=== PATIENT | female | born 1955 | race Caucasian/White ===

== ENCOUNTER 2019-02-13 11:25 | Emergency (ER) | payer BC ==
--- OUTSIDE RECORDS SUMMARY | 2019-02-13 11:31 | XMS REPORT | Continuity of Care Document ---
:1955 External Reference #:[id number] Author Name Aleyda Rossi Care Team Providers Name Role Phone Rosario Villarreal MD Primary Care Physician Unavailable Payers Date Identification Numbers Payment Provider Subscriber Effective: 2012 Policy Number: [id number] [employer] Markell Zheng PayID: [id number] [address] [address] [place] [address] Effective: 2010 Policy Number: [id number] [employer] [place] Markell Zheng Expires: 2012 PayID: [id number] [address] [address] [place] [address] Advance Directives Type Date Description Status Comment Other Directive 01/17/2018 Health Care Proxy Current and Verified Problems Active Problems Provider Date Pure hypercholesterolemia Demetra Lancaster M.D., FACP Onset: 12/26/2011 Low back pain Luisa Szymanski N.P. Onset: 12/26/2011 Acquired trigger finger Billy Kincaid M.D. Onset: 07/28/2014 Hand joint pain Billy Kincaid M.D. Onset: 07/28/2014 Chest pain Derrick Mehta M.D., Onset: 08/29/2017 FAC, EMILIE Thoracic aortic ectasia Derrick Mehta M.D., Onset: 08/29/2017 FACThuy, EMILIE Localized, primary osteoarthritis of the [place]anna Melton M.D. Onset: 01/19/2018 pelvic region and thigh Family History Date Family Member(s) Observation Comments General Cancer General Diabetes General Heart Disease General Hypertension General Rheumatoid Arthritis : (age Father due to Abdominal 76 Years) Aneurysm : (age Mother due to Cancer, 66 Years) Breast Mother Breast Cancer First Son 34 Second Son 32 Siblings 3 1 Brother - A Fib 1 Brother - Arrhythmia - Pacemaker 1 Brother - First Brother 61 First Brother Diabetes, Non Insulin Dependent Second Brother Obesity Second Brother 56 Third Brother 52 Third Brother Alive And Well Maternal Grandmother due to Breast () Cancer Social History Type Date Description Comments Sex Unknown Marital Status Lives With Occupation manage/maintain [employer] Tobacco Use Start: Unknown Never Smoked Cigarettes Smoking Status Reviewed: 02/11/19 Never Smoked Cigarettes ETOH Use Denies alcohol use Tobacco Use Start: Unknown Patient has never smoked Exercise Type/Frequency Exercises sporadically Allergies, Adverse Reactions, Alerts Active Allergies Reaction Severity Comments Date Cipro Anaphylaxis Severe 08/26/2010 Codeine Nausea and Vomiting Severe 08/26/2010 Medications Active Medications SIG Qnty Indications Ordering Provider Date Lisinopril 1 by mouth 30tabs I10 Luisa Varmarita, 10/01/2018 5mg Tablets every day N.P. Metoprolol Succinate 1 by mouth 30tabs Luisa Varn, 10/25/2017 ER every day N.P. 50mg Tablets ER 24HR Multi For Her 1 po qd Unknown Capsules Calcium + D3 1 daily Unknown (sporadic) History Medications Benzonatate one by mouth 30caps R05 Luisa Stephon, 05/11/2018 - 100mg Capsules three times N.P. 05/25/2018 daily as needed for cough Doxycycline Hyclate 2 tablets by 2tabs Luisa Stephon, 05/04/2018 - 100mg mouth N.P. 05/08/2018 Tablets Famotidine 1 by mouth 60tabs K21.9 Luisa Varn, 04/24/2018 - 20mg Tablets twice a day as N.P. 02/10/2019 needed for heartburn Meloxicam 1 by mouth 30tabs M25.552 Gabi Melton, 01/19/2018 - 15mg Tablets every day M.D. 04/24/2018 Metoprolol Succinate ER 1 by mouth 90tabs Luisa Varn, 08/29/2017 - 25mg every day N.P. 10/25/2017 Tablets ER 24HR Fluticasone Propionate 2 sprays each 16units J01.90 Luisa Stephon, 2016 - nostril daily N.P. 06/27/2017 50mcg/Act Suspension as needed Amoxicillin/Clavulanate one tablet by 20tabs J01.90 Luisa Stephon, 2016 - Potassium mouth twice N.P. 06/23/2017 875-125mg Tablets daily for 10 days Benzonatate one by mouth 30caps J01.90 Luisa Stephon, 06/13/2017 - 100mg Capsules three times N.P. 06/27/2017 daily as needed for cough Ibuprofen 1 tablet every 15tabs 719.46 Abdon Hahn, 11/19/2014 - 600mg Tablets 6 hours as [employer] 11/19/2014 needed for pain Ibuprofen 1 tablet every 30tabs 719.46 Abdon Hahn, 11/19/2014 - 600mg Tablets 6 hours up to [employer] 01/16/2018 tid as needed for pain Hydrochlorothiazide take one tablet 30tabs 401.1 Abdon Hahn, 08/21/2013 - 25mg by mouth every [employer] 03/21/2016 Tablets morning Cyclobenzaprine HCL take one at 30tabs 724.2 Demetra Lancaster, 02/27/2013 - 5mg Tablets bedtime as M.D., FACP 07/13/2014 needed Tramadol HCL one tablet 60tabs 724.2 Demetra Lancaster, 02/27/2013 - 50mg Tablets every 6 hours M.D., FACP 08/21/2013 as needed Hydrocodone/Acetaminophen 1-2 tabs by 20tabs 726.19 Demetra Lancaster, 2012 - mouth every 6 M.D., FACP 08/21/2013 5-325mg Tablets hours as needed Amoxicillin/Clavulanate 1 tablet twice 20tabs E906.5 Rosario 04/16/2012 - Potassium daily for 10 Cotton, M.D. 2012 875-125mg Tablets days Relpax 1 by mouth 6tabs Demetra Lancaster, 01/16/2012 - 40mg Tablets every day as M.D., FACP 10/16/2012 needed Simvastatin Take 1 Tablet 90tabs Demetra Lancaster, 09/07/2010 - 20mg Tablets AT Bedtime M.D., FACP 12/26/2011 Zithromax Z-Bernard two po 1Pack Demetra Lancaster, 08/26/2010 - 250mg Tablets initially then M.D., [facility] 09/05/2010 one po daily Flonase 2 intranasal 1units Demetar Lancaster, 08/26/2010 - 50mcg/Act Suspension puffs each M.D., [facility] 12/26/2011 nostril once daily Hydrochlorothiazide 1 po qd 90tabs Demetra Lancaster, 08/26/2010 - 25mg M.D., [facility] 12/26/2011 Tablets Zocor 1 tablet daily 90tabs Demetra Lancaster, 03/19/2010 - 20mg Tablets M.D., [facility] 12/26/2011 Melatonin 1 po qhs 90caps Unknown - 3mg Capsules 07/13/2014 Ibuprofen 3 tabs po prn Unknown - 200mg Capsules 07/13/2014 Aspirin Ec 1 by mouth Unknown - 81mg Tablets DR every day 03/21/2016 Melatonin every day as Unknown - 5mg Tablets Dispers needed 06/10/2016 Morus Fruit Tab 3 tabs 3 times Unknown - a day 09/27/2018 Albizzia 9 3 tabs 3 times Unknown - a day 09/27/2018 Nardova 1 tab before Unknown - bed 09/27/2018 Medications Administered in Office Medication SIG Qnty Indications Ordering Provider Date Depomedrol 40MG Gabi Melton M.D. 01/19/2018 Injection Depomedrol 20MG Billy Kincaid M.D. 07/14/2014 Injection Immunizations CPT Code Status Date Vaccine Lot # [id number] Given 04/24/2018 Tdap - Tetanus/Diptheria/Acellular Pertussis [id number] Given 03/24/2015 Zoster (Zostavax) [id number] 51397 Given 08/21/2013 Flu Vaccine Split Virus Preservative Free For [id number] Indiv 3Yr Older [id number] Given 2012 Fluzone Vaccine [id number] 47466 Given 2012 Hepatitis B Vaccine Adult Dosage [id number] 03880 Given 2012 Hepatitis A Vaccine Adult Dosage [id number] 68806 Given 05/21/2009 Influenza Virus 3Yrs & Over 78904 Given 02/15/2008 Tdap - Tetanus/Diptheria/Acellular Pertussis 86686 Given 02/15/2008 Tdap - Tetanus/Diptheria/Acellular Pertussis 45841 Given 06/18/2007 Influenza Virus 3Yrs & Over 68041 Given 06/18/2007 Influenza Virus 3Yrs & Over 74621 Given 04/05/2007 Hepatitis B Vaccine Adult Dosage 12203 Given 04/05/2007 Hepatitis B Vaccine Adult Dosage 41685 Given 02/27/2007 Hepatitis B Vaccine Adult Dosage 98673 Given 02/27/2007 Hepatitis B Vaccine Adult Dosage 34621 Given 02/27/2007 Hepatitis A Vaccine Adult Dosage Vital Signs Date Vital Result Comment 02/11/2019 1:17pm Height 64.5 inches 5'4.50" Weight 167.00 lb with shoes Heart Rate 68 /min BP Systolic Sitting 146 mmHg lue reg cuff BP Diastolic Sitting 80 mmHg lue reg cuff BP Systolic Standing 150 mmHg lue reg cuff BP Diastolic Standing 80 mmHg lue reg cuff BMI (Body Mass Index) 28.2 kg/m2 Ejection Fraction 60-65% echo 11/26/18 12/11/2018 9:26am Height 64.5 inches 5'4.50" Weight 167.00 lb Heart Rate 68 /min BP Systolic 146 mmHg BP Diastolic 86 mmHg O2 % BldC Oximetry 97 % BMI (Body Mass Index) 28.2 kg/m2 Last Menstrual Period [id number] 10/22/2018 10:12am Height 64.5 inches 5'4.50" Weight 165.00 lb Heart Rate 62 /min BP Systolic 142 mmHg BP Diastolic 85 mmHg Body Temperature 97.9 F O2 % BldC Oximetry 98 % BMI (Body Mass Index) 27.9 kg/m2 10/01/2018 10:26am Height 64.5 inches 5'4.50" Weight 170.75 lb Heart Rate 69 /min BP Systolic Sitting 157 mmHg reg adult cuff left arm BP Diastolic Sitting 89 mmHg reg adult cuff left arm Body Temperature 96.9 F O2 % BldC Oximetry 98 % at rest on room air BMI (Body Mass Index) 28.9 kg/m2 05/11/2018 11:44am Height 64.5 inches 5'4.50" Weight 164.00 lb Heart Rate 61 /min BP Systolic 128 mmHg BP Diastolic 80 mmHg Body Temperature 97.9 F O2 % BldC Oximetry 98 % BMI (Body Mass Index) 27.7 kg/m2 04/24/2018 8:33am Height 64.5 inches 5'4.50" Weight 164.00 lb Heart Rate 63 /min BP Systolic 142 mmHg BP Diastolic 80 mmHg Body Temperature 97.3 F O2 % BldC Oximetry 97 % BMI (Body Mass Index) 27.7 kg/m2 02/19/2018 9:15am Height 65 inches 5'5" Weight 145.25 lb BP Systolic 140 mmHg BP Diastolic 84 mmHg Body Temperature 98.0 F Pain Level 0 BMI (Body Mass Index) 24.2 kg/m2 01/19/2018 11:30am Height 63.25 inches 5'3.25" Weight 168.00 lb Heart Rate 64 /min BP Systolic 148 mmHg BP Diastolic 100 mmHg BMI (Body Mass Index) 29.5 kg/m2 01/17/2018 3:39pm Height 63.25 inches 5'3.25" Weight 168.00 lb Heart Rate 69 /min BP Systolic Sitting 132 mmHg BP Diastolic Sitting 85 mmHg Body Temperature 97.9 F O2 % BldC Oximetry 98 % BMI (Body Mass Index) 29.5 kg/m2 10/25/2017 10:09am Weight 175.50 lb Heart Rate 61 /min BP Systolic 143 mmHg BP Diastolic 82 mmHg Body Temperature 97.1 F O2 % BldC Oximetry 98 % 08/29/2017 1:02pm Height 63.25 inches 5'3.25" Weight 171.00 lb No shoes Heart Rate 70 /min BP Systolic 150 mmHg Rue lrg cuff BP Diastolic 78 mmHg Rue lrg cuff BP Systolic Sitting 148 mmHg Lue lrg cuff BP Diastolic Sitting 80 mmHg Lue lrg cuff BP Systolic Standing 146 mmHg Lue lrg cuff BP Diastolic Standing 82 mmHg Lue lrg cuff Respiratory Rate 16 /min BMI (Body Mass Index) 30.0 kg/m2 Ejection Fraction 50-55% 08/03/2017-echo 07/26/2017 9:11am Weight 168.00 lb Heart Rate 75 /min BP Systolic 154 mmHg BP Diastolic 78 mmHg Body Temperature 97.4 F O2 % BldC Oximetry 98 % 06/13/2017 9:58am Heart Rate 79 /min BP Systolic 132 mmHg BP Diastolic 90 mmHg Body Temperature 98.0 F O2 % BldC Oximetry 97 % 04/12/2017 10:05am Weight 172.12 lb Heart Rate 77 /min BP Systolic 140 mmHg BP Diastolic 80 mmHg Body Temperature 98.0 F O2 % BldC Oximetry 98 % 03/29/2017 10:34am Weight 173.00 lb Heart Rate 60 /min BP Systolic 152 mmHg right arm BP Diastolic 98 mmHg right arm Body Temperature 97.7 F O2 % BldC Oximetry 98 % 07/26/2016 11:13am Height 64.5 inches 5'4.50" Weight 171.00 lb Heart Rate 55 /min BP Systolic 140 mmHg BP Diastolic 88 mmHg Body Temperature 97.9 F O2 % BldC Oximetry 98 % BMI (Body Mass Index) 28.9 kg/m2 06/24/2016 1:29pm Height 64.5 inches 5'4.50" Weight 169.00 lb Heart Rate 73 /min BP Systolic 131 mmHg BP Diastolic 83 mmHg Body Temperature 97.9 F O2 % BldC Oximetry 98 % BMI (Body Mass Index) 28.6 kg/m2 06/10/2016 12:53pm Height 64.5 inches 5'4.50" Weight 167.00 lb Heart Rate 74 /min BP Systolic 121 mmHg BP Diastolic 77 mmHg Body Temperature 98.3 F O2 % BldC Oximetry 98 % BMI (Body Mass Index) 28.2 kg/m2 03/21/2016 3:05pm Weight 170.00 lb Heart Rate 66 /min BP Systolic Sitting 124 mmHg BP Diastolic Sitting 80 mmHg Respiratory Rate 15 /min Body Temperature 98.3 F O2 % BldC Oximetry 98 % 03/24/2015 10:02am Height 65 inches 5'5" Weight 164.50 lb Heart Rate 76 /min BP Systolic Sitting 118 mmHg BP Diastolic Sitting 78 mmHg Body Temperature 97.4 F O2 % BldC Oximetry 98 % BMI (Body Mass Index) 27.4 kg/m2 11/19/2014 10:50am Height 65 inches 5'5" Weight 168.25 lb Heart Rate 69 /min BP Systolic Sitting 128 mmHg BP Diastolic Sitting 76 mmHg Body Temperature 97.6 F O2 % BldC Oximetry 98 % BMI (Body Mass Index) 28.0 kg/m2 09/01/2014 8:43am Height 65 inches 5'5" Heart Rate 69 /min BP Systolic 145 mmHg BP Diastolic 83 mmHg 07/28/2014 3:34pm Height 65 inches 5'5" Heart Rate 59 /min BP Systolic 126 mmHg BP Diastolic 88 mmHg 07/14/2014 11:08am Height 65 inches 5'5" Weight 160.00 lb Heart Rate 61 /min BP Systolic 120 mmHg BP Diastolic 81 mmHg BMI (Body Mass Index) 26.6 kg/m2 06/10/2014 11:25am Weight 165.00 lb Heart Rate 72 /min BP Systolic Sitting 118 mmHg BP Diastolic Sitting 82 mmHg 08/21/2013 1:17pm Weight 164.00 lb Heart Rate 72 /min BP Systolic Sitting 138 mmHg BP Diastolic Sitting 78 mmHg 02/27/2013 2:51pm Heart Rate 74 /min BP Systolic Sitting 132 mmHg BP Diastolic Sitting 84 mmHg 01/25/2013 8:59am Weight 169.00 lb Heart Rate 68 /min BP Systolic Sitting 126 mmHg BP Diastolic Sitting 80 mmHg Body Temperature 98.5 F Tympanically 10/16/2012 11:00am Height 65 inches 5'5" Weight 167.00 lb Heart Rate 76 /min BP Systolic Sitting 138 mmHg BP Diastolic Sitting 84 mmHg BMI (Body Mass Index) 27.8 kg/m2 2012 1:35pm Height 65 inches 5'5" Weight 165.00 lb Heart Rate 76 /min BP Systolic Sitting 130 mmHg BP Diastolic Sitting 82 mmHg BMI (Body Mass Index) 27.5 kg/m2 04/16/2012 9:31am Height 65 inches 5'5" Weight 163.50 lb Heart Rate 84 /min BP Systolic Sitting 130 mmHg BP Diastolic Sitting 84 mmHg Body Temperature 98.4 F BMI (Body Mass Index) 27.2 kg/m2 01/16/2012 10:19am Height 65 inches 5'5" Weight 166.50 lb Heart Rate 64 /min BP Systolic Sitting 128 mmHg BP Diastolic Sitting 80 mmHg BMI (Body Mass Index) 27.7 kg/m2 12/26/2011 12:06pm Height 65 inches 5'5" Weight 166.00 lb Heart Rate 64 /min BP Systolic Sitting 138 mmHg BP Diastolic Sitting 80 mmHg Body Temperature 98.0 F BMI (Body Mass Index) 27.6 kg/m2 08/26/2010 10:52am Weight 166.00 lb Heart Rate 70 /min BP Systolic 122 mmHg BP Diastolic 90 mmHg Body Temperature 98.4 F Results Test Date Facility Test Result H/L Range Note Laboratory test 12/11/2018 [facility] Cytology SEE RESULT [address] [place] [address] [phone] Lipid Profile 11/27/2018 [facility] Triglycerides 166 mg/dL 2 (Trig/Chol/HDL) [address] [place] [address] [phone] Cholesterol 198 mg/dL 3 HDL Cholesterol 60.6 mg/dL 4 LDL Cholesterol 104 mg/dL 5 Comp Metabolic Panel 11/27/2018 [facility] Sodium 142 mmol/L N 135-[address] [place] [address] [phone] Potassium 4.3 mmol/L N 3.5-5.0 Chloride 105 mmol/L N 101-111 Co2 Carbon Dioxide 30 mmol/L N 22-32 Anion Gap 7 mmol/L N 2-11 Glucose 82 mg/dL N 70-100 Blood Urea Nitrogen 17 mg/dL N 6-24 Creatinine 0.83 mg/dL N 0.51-0.95 BUN/Creatinine Ratio 20.5 High 8-20 Calcium 10.1 mg/dL N 8.6-10.3 Total Protein 6.7 g/dL N 6.4-8.9 Albumin 4.2 g/dL N 3.2-5.2 Globulin 2.5 g/dL N 2-4 Albumin/Globulin Ratio 1.7 N 1-3 Total Bilirubin 0.80 mg/dL N 0.2-1.0 Alkaline Phosphatase 99 U/L N 34-104 Alt 13 U/L N 7-52 Ast 22 U/L N 13-39 Egfr Non- 69.2 >60 Egfr 83.7 >60 6 Istat BUN/Crea/Egfr/V 07/26/2017 [facility] Poc Bun 12 mg/dL N 9-[address] [place] [address] [phone] Poc Crea Mainct 0.9 mg/dL N 0.6-0.9 GFR Non- MCT 63.2 >60 GFR Mainct 81.3 >60 7 Basic Metabolic Panel 07/26/2017 [facility] Sodium 138 mmol/L N 133-[address] [place] [address] [phone] Potassium 3.7 mmol/L N 3.5-5.0 Chloride 104 mmol/L N 101-111 Co2 Carbon Dioxide 30 mmol/L N 22-32 Anion Gap 4 mmol/L N 2-11 Glucose 89 mg/dL N 70-100 Blood Urea Nitrogen 13 mg/dL N 6-24 Creatinine 0.85 mg/dL N 0.51-0.95 BUN/Creatinine Ratio 15.3 N 8-20 Calcium 9.9 mg/dL N 8.6-10.3 Egfr Non- 67.5 >60 Egfr 86.9 >60 8 CBC Auto Diff 07/26/2017 [facility] White Blood 6.3 10^3/uL N 3.5-10.[address] [place] [address] [phone] Red Blood Count 4.36 10^6/uL N 4.0-5.4 Hemoglobin 13.6 g/dL N 12.0-16.0 Hematocrit 41 % N 35-47 Mean Corpuscular Volume 94 fL N 80-97 Mean Corpuscular Hemoglobin 31 pg N 27-31 Mean Corpuscular HGB Conc 33 g/dL N 31-36 Red Cell Distribution Width 13 % N 10.5-15 Platelet Count 229 10^3/uL N 150-450 Mean Platelet Volume 8 um3 N 7.4-10.4 Abs Neutrophils 3.4 10^3/uL N 1.5-7.7 Abs Lymphocytes 2.3 10^3/uL N 1.0-4.8 Abs Monocytes 0.4 10^3/uL N 0-0.8 Abs Eosinophils 0.1 10^3/uL N 0-0.6 Abs Basophils 0.1 10^3/uL N 0-0.2 Abs Nucleated RBC 0 10^3/uL Granulocyte % 54.1 % N 38-83 Lymphocyte % 37.1 % N 25-47 Monocyte % 6.5 % N 1-9 Eosinophil % 1.4 % N 0-6 Basophil % 0.9 % N 0-2 Nucleated Red Blood Cells % 0 CBC Auto Diff 08/16/2016 [facility] White Blood 7.8 10^3/uL N 3.5-10.[address] [place] [address] [phone] Red Blood Count 4.34 10^6/uL N 4.0-5.4 Hemoglobin 13.7 g/dL N 12.0-16.0 Hematocrit 40 % N 35-47 Mean Corpuscular Volume 93 fL N 80-97 Mean Corpuscular Hemoglobin 32 pg High 27-31 Mean Corpuscular HGB Conc 34 g/dL N 31-36 Red Cell Distribution Width 13 % N 10.5-15 Platelet Count 223 10^3/uL N 150-450 Mean Platelet Volume 9 um3 N 7.4-10.4 Abs Neutrophils 4.5 10^3/uL N 1.5-7.7 Abs Lymphocytes 2.6 10^3/uL N 1.0-4.8 Abs Monocytes 0.6 10^3/uL N 0-0.8 Abs Eosinophils 0.1 10^3/uL N 0-0.6 Abs Basophils 0 10^3/uL N 0-0.2 Abs Nucleated RBC 0 10^3/uL N Granulocyte % 57.4 % N 38-83 Lymphocyte % 32.6 % N 25-47 Monocyte % 8.2 % N 1-9 Eosinophil % 1.3 % N 0-6 Basophil % 0.5 % N 0-2 Nucleated Red Blood Cells % 0.1 N Comp Metabolic Panel 08/16/2016 [facility] Sodium 139 mmol/L N 133-[address] [place] [address] [phone] Potassium 4.1 mmol/L N 3.5-5.0 Chloride 103 mmol/L N 101-111 Co2 Carbon Dioxide 29 mmol/L N 22-32 Anion Gap 7 mmol/L N 2-11 Glucose 90 mg/dL N 70-100 Blood Urea Nitrogen 16 mg/dL N 6-24 Creatinine 0.82 mg/dL N 0.51-0.95 BUN/Creatinine Ratio 19.5 N 8-20 Calcium 9.7 mg/dL N 8.6-10.3 Total Protein 6.7 g/dL N 6.4-8.9 Albumin 4.0 g/dL N 3.2-5.2 Globulin 2.7 g/dL N 2-4 Albumin/Globulin Ratio 1.5 N 1-3 Total Bilirubin 0.60 mg/dL N 0.2-1.0 Alkaline Phosphatase 107 U/L High 34-104 Alt 12 U/L N 7-52 Ast 20 U/L N 13-39 Egfr Non- 70.6 N >60 Egfr 90.8 N >60 9 Laboratory test 08/16/2016 [facility] TSH (Thyroid 1.96 mcIU/mL N 0.34-5.[address] Stim [place]orm) [place] [address] [phone] Ua Routine 06/24/2016 [employer] Ua Specific 1.030 [place] Ua PH 5 Ua Color yellow Ua Appera cloudy Ua WBC neg Ua Protein trace Ua Glucose neg Ua Ketones neg Ua Bilirubin neg Ua Urobilinogen normal Ua Nitrite neg Ua Occult Blood neg CBC Auto Diff 06/23/2016 [facility] White Blood 7.3 10^3/uL N 3.5-10.[address] [place] [address] [phone] Red Blood Count 4.33 10^6/uL N 4.0-5.4 Hemoglobin 13.7 g/dL N 12.0-16.0 Hematocrit 41 % N 35-47 Mean Corpuscular Volume 94 fL N 80-97 Mean Corpuscular Hemoglobin 32 pg High 27-31 Mean Corpuscular HGB Conc 33 g/dL N 31-36 Red Cell Distribution Width 13 % N 10.5-15 Platelet Count 222 10^3/uL N 150-450 Mean Platelet Volume 9 um3 N 7.4-10.4 Abs Neutrophils 4.0 10^3/uL N 1.5-7.7 Abs Lymphocytes 2.2 10^3/uL N 1.0-4.8 Abs Monocytes 0.7 10^3/uL N 0-0.8 Abs Eosinophils 0.3 10^3/uL N 0-0.6 Abs Basophils 0.1 10^3/uL N 0-0.2 Abs Nucleated RBC 0 10^3/uL N Granulocyte % 55.5 % N 38-83 Lymphocyte % 29.7 % N 25-47 Monocyte % 9.7 % High 1-9 Eosinophil % 4.1 % N 0-6 Basophil % 1.0 % N 0-2 Nucleated Red Blood Cells % 0 N Comp Metabolic Panel 06/23/2016 [facility] Sodium 138 mmol/L N 133-[address] [place] [address] [phone] Potassium 4.4 mmol/L N 3.5-5.0 Chloride 106 mmol/L N 101-111 Co2 Carbon Dioxide 26 mmol/L N 22-32 Anion Gap 6 mmol/L N 2-11 Glucose 85 mg/dL N 70-100 Blood Urea Nitrogen 21 mg/dL N 6-24 Creatinine 1.04 mg/dL High 0.51-0.95 BUN/Creatinine Ratio 20.2 High 8-20 Calcium 9.5 mg/dL N 8.6-10.3 Total Protein 6.5 g/dL N 6.4-8.9 Albumin 3.9 g/dL N 3.2-5.2 Globulin 2.6 g/dL N 2-4 Albumin/Globulin Ratio 1.5 N 1-3 Total Bilirubin 0.40 mg/dL N 0.2-1.0 Alkaline Phosphatase 108 U/L High 34-104 Alt 10 U/L N 7-52 Ast 17 U/L N 13-39 Egfr Non- 53.7 N >60 Egfr 69.1 N >60 10 Laboratory test 03/18/2016 [facility] B-Type 27 pg/mL N [address] [place] [address] Peptide BNP [phone] Comp Metabolic 03/18/2016 [facility] Sodium 139 mmol/L N 133- [address] [place] [address] [phone] Potassium 3.8 mmol/L N 3.5-5.0 Chloride 105 mmol/L N 101-111 Co2 Carbon Dioxide 28 mmol/L N 22-32 Anion Gap 6 mmol/L N 2-11 Glucose 94 mg/dL N 70-100 Blood Urea Nitrogen 17 mg/dL N 6-24 Creatinine 0.87 mg/dL N 0.51-0.95 BUN/Creatinine Ratio 19.5 N 8-20 Calcium 9.3 mg/dL N 8.6-10.3 Total Protein 6.9 g/dL N 6.4-8.9 Albumin 3.9 g/dL N 3.2-5.2 Globulin 3.0 g/dL N 2-4 Albumin/Globulin Ratio 1.3 N 1-3 Total Bilirubin 0.50 mg/dL N 0.2-1.0 Alkaline Phosphatase 100 U/L N 34-104 Alt 13 U/L N 7-52 Ast 20 U/L N 13-39 Egfr Non- 66.2 N >60 Egfr 85.1 N >60 12 Laboratory test 03/18/2016 [facility] Troponin-I 0.01 ng/mL N <0.03 [address] (TnI) [place] [address] [phone] CBC Auto Diff 03/18/2016 [facility] White Blood 7.1 N 3.5- 10.[address] Count 10^3/[place] [address] [phone] Red Blood Count 4.37 10^6/uL N 4.0-5.4 Hemoglobin 13.6 g/dL N 12.0-16.0 Hematocrit 41 % N 35-47 Mean Corpuscular Volume 94 fL N 80-97 Mean Corpuscular Hemoglobin 31 pg N 27-31 Mean Corpuscular HGB Conc 33 g/dL N 31-36 Red Cell Distribution Width 13 % N 10.5-15 Platelet Count 217 10^3/uL N 150-450 Mean Platelet Volume 9 um3 N 7.4-10.4 Abs Neutrophils 3.7 10^3/uL N 1.5-7.7 Abs Lymphocytes 2.7 10^3/uL N 1.0-4.8 Abs Monocytes 0.6 10^3/uL N 0-0.8 Abs Eosinophils 0.1 10^3/uL N 0-0.6 Abs Basophils 0.1 10^3/uL N 0-0.2 Abs Nucleated RBC 0.01 10^3/uL N Granulocyte % 51.9 % N 38-83 Lymphocyte % 37.7 % N 25-47 Monocyte % 7.9 % N 1-9 Eosinophil % 1.4 % N 0-6 Basophil % 1.1 % N 0-2 Nucleated Red Blood Cells % 0.1 N Comp Metabolic Panel 03/24/2015 [facility] Sodium 139 mmol/L N 133-[address] [place] [address] [phone] Potassium 3.4 mmol/L Low 3.5-5.0 Chloride 100 mmol/L Low 101-111 Co2 Carbon Dioxide 33 mmol/L High 22-32 Anion Gap 6 mmol/L N 2-11 Glucose 90 mg/dL N 70-100 Blood Urea Nitrogen 22 mg/dL N 6-24 Creatinine 0.89 mg/dL N 0.51-0.95 BUN/Creatinine Ratio 24.7 High 8-20 Calcium 9.4 mg/dL N 8.6-10.3 Total Protein 6.6 g/dL N 6.4-8.9 Albumin 4.1 g/dL N 3.2-5.2 Globulin 2.5 g/dL N 2-4 Albumin/Globulin Ratio 1.6 N 1-3 Total Bilirubin 0.60 mg/dL N 0.2-1.0 Alkaline Phosphatase 79 U/L N 34-104 Alt 16 U/L N 7-52 Ast 27 U/L N 13-39 Egfr Non- 64.7 N >60 Egfr 83.2 N >60 15 Lipid Profile 03/24/2015 [facility] Triglycerides 117 mg/dL N 16 (Trig/Chol/HDL) [address] [place] [address] [phone] Cholesterol 203 mg/dL N 17 HDL Cholesterol 56.3 mg/dL N 18 LDL Cholesterol 123 mg/dL N 19 Laboratory test 11/19/2014 [facility] D Dimer < 200 N Less [address] Quantitative ng/mL Than [address] [place] [address] [phone] CBC Auto Diff 08/14/2014 [facility] White Blood Count 7.5 N 4.8-10.[address] 10^3/[place] [address] [phone] Red Blood Count 4.24 10^6/uL N 4.0-5.4 Hemoglobin 13.7 g/dL N 12.0-16.0 Hematocrit 40 % N 35-47 Mean Corpuscular Volume 94 fL N 80-97 Mean Corpuscular Hemoglobin 32 pg High 27-31 Mean Corpuscular HGB Conc 34 g/dL N 31-36 Red Cell Distribution Width 13 % N 10.5-15 Platelet Count 215 10^3/uL N 150-450 Mean Platelet Volume 8 um3 N 7.4-10.4 Abs Neutrophils 3.7 10^3/uL N 1.5-7.7 Abs Lymphocytes 3.1 10^3/uL N 1.0-4.8 Abs Monocytes 0.5 10^3/uL N 0-0.8 Abs Eosinophils 0.1 10^3/uL N 0-0.6 Abs Basophils 0 10^3/uL N 0-0.2 Abs Nucleated RBC 0.01 10^3/uL N Granulocyte % 49.6 % N 38-83 Lymphocyte % 41.8 % N 25-47 Monocyte % 6.9 % N 1-9 Eosinophil % 1.2 % N 0-6 Basophil % 0.5 % N 0-2 Nucleated Red Blood Cells % 0.1 N Basic Metabolic Panel 08/14/2014 [facility] Sodium 140 mmol/L N 133-[address] [place] [address] [phone] Potassium 3.6 mmol/L N 3.5-5.0 Chloride 103 mmol/L N 101-111 Co2 Carbon Dioxide 32 mmol/L N 22-32 Anion Gap 5 mmol/L N 2-11 Glucose 95 mg/dL N 70-100 Blood Urea Nitrogen 15 mg/dL N 6-24 Creatinine 0.91 mg/dL N 0.51-0.95 BUN/Creatinine Ratio 16.5 N 8-20 Calcium 9.6 mg/dL N 8.6-10.3 Egfr Non- 63.1 N >60 Egfr 81.1 N >60 22 Surgical 07/02/2014 [facility] S RUN DATE: [address] 07/03/ <[place] [address] NOTE> [phone] Lipid Profile 11/05/2013 [facility] Triglycerides 135 mg/dL 24 (Trig/Chol/HDL) [address] [place] [address] [phone] Cholesterol 189 mg/dL 25 HDL Cholesterol 58.3 mg/dL 26 LDL Cholesterol 104 mg/dL 27 Comp Metabolic Panel 11/05/2013 [facility] Sodium 139 mmol/L 133-[address] [place] [address] [phone] Potassium 3.6 mmol/L Low 3.7-5.6 Chloride 102 mmol/L 101-111 Co2 Carbon Dioxide 31 mmol/L 22-32 Anion Gap 6 mmol/L 2-11 Glucose 89 mg/dL 70-100 Blood Urea Nitrogen 23 mg/dL 6-24 Creatinine 0.77 mg/dL 0.51-0.95 BUN/Creatinine Ratio 29.9 High 8-20 Calcium 9.5 mg/dL 8.6-10.3 Total Protein 7.0 g/dL 6.4-8.9 Albumin 4.2 g/dL 3.2-5.2 Globulin 2.8 g/dL 2-4 Albumin/Globulin Ratio 1.5 1-3 Total Bilirubin 0.80 mg/dL 0.2-1.0 Alkaline Phosphatase 78 U/L 34-104 Alt 15 U/L 7-52 Ast 22 U/L 13-39 Egfr Non- 76.7 >60 Egfr 98.7 >60 28 Laboratory test 01/25/2013 [facility] TSH (Thyroid 1.98 0.34- 5.[address] Stimulating miu/[place] [address] Horm) [phone] Comp Metabolic 05/17/2012 [facility] Sodium 141 mmol/L 135- [address] [place] [address] [phone] Potassium 3.8 mmol/L 3.5-5.0 Chloride 107 mmol/L 101-111 Co2 (Carbon Dioxide) 31.0 mmol/L 22-32 Anion Gap 3.0 mmol/L 2-11 29 Glucose 87 mg/dL 70-100 BUN 17 mg/dL 6-24 Creatinine 0.9 mg/dL 0.50-1.40 One Over Creatinine 1.11 BUN/Creatinine Ratio 18.9 8-20 Calcium 9.6 mg/dL 8.1-9.9 Total Protein 6.3 GM/DL 6.2-8.1 Albumin 3.7 GM/DL 3.6-5.4 Globulin 2.6 GM/DL 2-4 Albumin/Globulin Ratio 1.4 1-3 Bilirubin Total 1.1 mg/dL 0.4-1.5 30 Alkaline Phosphatase 73 U/L 30-110 Alt (SGPT) 17 U/L 14-54 Ast (Sgot) 24 U/L 12-42 eGFR Non- 64.5 > 60 eGFR 83.0 > 60 31 Laboratory test 05/17/2012 [facility] TSH 1.92 MIU/ML 0.34- 5.[address] [place] [address] [phone] Lipid Profile 05/17/2012 [facility] Triglyceride 115 mg/dL 40 -200 (Trig/Chol/HDL) [address] [place] [address] [phone] Cholesterol 206 mg/dL High Less Than 200 32 High Density Lipoprotein 50 mg/dL 40-60 33 Cholesterol/HDL Ratio 4.12 AVERAGE 1-4.44 Low Density Lipoprotein 133 mg/dL High Less Than 100 34 CBC Auto Diff 01/13/2012 [facility] White Blood 7.2 CUMM 4.8- 10.[address] [place] [address] [phone] Red Cell Count 4.07 CUMM Low 4.2-5.4 Hemoglobin 13.5 g/dL 12.0-16.0 Hematocrit 38 % 35-47 Mean Corpuscular Volume 94 um3 79-97 Mean Corpuscular Hemoglob 33 pg High 27-31 Mean Corpuscular HGB Cone 36 g/dL 32-36 Redcell Distribution WDTH 13 % 10.5-15 Platelet Count 228 CUMM 150-450 Mean Platelet Volume 8.7 um3 7.4-10.4 Gran % 57.2 % 38-83 Lymph % 34.0 % 25-47 Mononuclear % 6.5 % 1-9 Eosinophil % 1.7 % 0-6 Basophil % 0.6 % 0-2 Abs Lymphs 2.4 1.0-4.8 Abs Mononuclear 0.5 0-0.8 Absolute Neutrophil Count 4.1 1.5-7.7 Abs Eosinophils 0.1 0-0.6 Abs Basophils 0 0-0.2 Laboratory test 01/13/2012 [facility] C Reactive < 0.5 mg/dL Less Than finding [address] Protein 0.5 [place] [address] [phone] LDH 165 U/L 95-185 1 SEE RESULT BELOW Name: ROXIE ZHENG : [address]: Randal Pappas MD Acct: [id number] Unit: [id number] AGE: 63 Location: [facility] Re12/11/18 SEX: F Status: REG REF SPEC: [id number] RAMÓN: 12/11/[address] [facility] [address]: Randal Pappas MD REQ: [id number] RECD: 12/11/18 STATUS: SOUT _ ORDERED: TP IMAGE ANALYS, HPV/Thin Prep COMMENTS: [id number] Negative for Intraepithelial lesion or Malignancy Date Time Test Result Flag (u) Normal Range 12/11/18 0948 @ HPV RNA Negative Negative @ @ The high-risk HPV types detected by the assay include: 16, @ 18, 31, 33, 35, 39, 45, 51, 52, 56, 58, 59, 66, and 68. A. Ectocervical/Endocervical Specimen Adequacy: Satisfactory of evaluation Transformation zone component cannot be definitely identified due to presence of atrophy or other hormonal changes Patient Information: HPV: High risk HPV RNA testing regardless of pap results. Actual Specimen Date: 12/11/18 Last Menstrual Date: 09/04/03 ?: N Post Menopausal?: N Hysterectomy?: N Signed by and Reported on: KEISHA Sanders(ASCP) 1551 This Pap test was evaluated with the assistance of the [employer]persol TechnologiesPrep Test Imaging System. Due to cytologic findings at the cardiovascular technologist microscope, comprehensive manual rescreening by a Store Consultant may be required. The Pap Smear is a screening test designed to aid in the detection of premalignant and malignant conditions of the uterine cervix. It is not a diagnostic procedure and should not be used as the sole means of detecting cervical cancer. Both false- positive and false- negative reports do occur. Depending on your risk status, a Pap smear should be obtained and evaluated every 1-3 years. END OF REPORT DEPARTMENT OF PATHOLOGY, [address] [place] [address] Delfino Coy M.D. Director [facility] # [id number] 2 Desirable: <150 Borderline High: 150-199 High: 200-499 Very High: >500 3 Desirable: <200 Borderline High: 200-239 High: >239 4 Low: <40 Desirable: 40-60 High: >60 5 Desirable: <100 Near Optimal: 100-129 Borderline High: 130-159 High: 160-189 Very High: >189 6 Because ethnic data is not always readily available, this report includes an eGFR for both -Americans and non- Americans. The National Kidney Disease Education Program (NKDEP) does not endorse the use of the MDRD equation for patients that are not between the ages of 18 and 70, are , have extremes of body size, muscle mass, or nutritional status, or are non- or non-. According to the National Kidney Foundation, irrespective of diagnosis, the stage of the disease is based on the level of kidney function: Stage Description GFR(mL/min/1.73 m(2)) 1 Kidney damage with normal or decreased GFR 90 2 Kidney damage with mild decrease in GFR 60-89 3 Moderate decrease in GFR 30-59 4 Severe decrease in GFR 15-29 5 Kidney failure <15 (or dialysis) 7 Because ethnic data is not always readily available, this report includes an eGFR for both -Americans and non- Americans. The National Kidney Disease Education Program (NKDEP) does not endorse the use of the MDRD equation for patients that are not between the ages of 18 and 70, are , have extremes of body size, muscle mass, or nutritional status, or are non- or non-. According to the National Kidney Foundation, irrespective of diagnosis, the stage of the disease is based on the level of kidney function: Stage Description GFR(mL/min/1.73 m(2)) 1 Kidney damage with normal or decreased GFR 90 2 Kidney damage with mild decrease in GFR 60-89 3 Moderate decrease in GFR 30-59 4 Severe decrease in GFR 15-29 5 Kidney failure <15 (or dialysis) 8 Because ethnic data is not always readily available, this report includes an eGFR for both -Americans and non- Americans. The National Kidney Disease Education Program (NKDEP) does not endorse the use of the MDRD equation for patients that are not between the ages of 18 and 70, are , have extremes of body size, muscle mass, or nutritional status, or are non- or non-. According to the National Kidney Foundation, irrespective of diagnosis, the stage of the disease is based on the level of kidney function: Stage Description GFR(mL/min/1.73 m(2)) 1 Kidney damage with normal or decreased GFR 90 2 Kidney damage with mild decrease in GFR 60-89 3 Moderate decrease in GFR 30-59 4 Severe decrease in GFR 15-29 5 Kidney failure <15 (or dialysis) 9 Because ethnic data is not always readily available, this report includes an eGFR for both -Americans and non- Americans. The National Kidney Disease Education Program (NKDEP) does not endorse the use of the MDRD equation for patients that are not between the ages of 18 and 70, are , have extremes of body size, muscle mass, or nutritional status, or are non- or non-. According to the National Kidney Foundation, irrespective of diagnosis, the stage of the disease is based on the level of kidney function: Stage Description GFR(mL/min/1.73 m(2)) 1 Kidney damage with normal or decreased GFR 90 2 Kidney damage with mild decrease in GFR 60-89 3 Moderate decrease in GFR 30-59 4 Severe decrease in GFR 15-29 5 Kidney failure <15 (or dialysis) 10 Because ethnic data is not always readily available, this report includes an eGFR for both -Americans and non- Americans. The National Kidney Disease Education Program (NKDEP) does not endorse the use of the MDRD equation for patients that are not between the ages of 18 and 70, are , have extremes of body size, muscle mass, or nutritional status, or are non- or non-. According to the National Kidney Foundation, irrespective of diagnosis, the stage of the disease is based on the level of kidney function: Stage Description GFR(mL/min/1.73 m(2)) 1 Kidney damage with normal or decreased GFR 90 2 Kidney damage with mild decrease in GFR 60-89 3 Moderate decrease in GFR 30-59 4 Severe decrease in GFR 15-29 5 Kidney failure <15 (or dialysis) 11 >100 to <200 pg/mL: likely compensated congestive heart failure (CHF) 200 to 400 pg/mL: likely moderate CHF >400 pg/mL: likely moderate to severe CHF 12 Because ethnic data is not always readily available, this report includes an eGFR for both -Americans and non- Americans. The National Kidney Disease Education Program (NKDEP) does not endorse the use of the MDRD equation for patients that are not between the ages of 18 and 70, are , have extremes of body size, muscle mass, or nutritional status, or are non- or non-. According to the National Kidney Foundation, irrespective of diagnosis, the stage of the disease is based on the level of kidney function: Stage Description GFR(mL/min/1.73 m(2)) 1 Kidney damage with normal or decreased GFR 90 2 Kidney damage with mild decrease in GFR 60-89 3 Moderate decrease in GFR 30-59 4 Severe decrease in GFR 15-29 5 Kidney failure <15 (or dialysis) 13 Reference Range and Interpretation: TnI (ng/mL) Interpretation Less Than 0.03 ng/mL Not supportive of diagnosis of [place] 0.03 - 0.50 ng/mL Indeterminate: suggest serial studies if clinically indicated. Greater than 0.5 ng/mL Consistent with diagnosis of KS 14 PT IS FASTING 15 Because ethnic data is not always readily available, this report includes an eGFR for both -Americans and non- Americans. The National Kidney Disease Education Program (NKDEP) does not endorse the use of the MDRD equation for patients that are not between the ages of 18 and 70, are , have extremes of body size, muscle mass, or nutritional status, or are non- or non-. According to the National Kidney Foundation, irrespective of diagnosis, the stage of the disease is based on the level of kidney function: Stage Description GFR(mL/min/1.73 m(2)) 1 Kidney damage with normal or decreased GFR 90 2 Kidney damage with mild decrease in GFR 60-89 3 Moderate decrease in GFR 30-59 4 Severe decrease in GFR 15-29 5 Kidney failure <15 (or dialysis) 16 Desirable <150 Borderline high 150-199 High 200-499 Very High >500 17 Desirable <200 Borderline high 200-239 High >239 18 Low <40 Desirable: 40-60 High: >60 19 Desirable: <100 mg/dL Near Optimal: 100-129 mg/dL Borderline High: 130-159 mg/dL High: 160-189 mg/dL Very High: >189 mg/dL 20 Please note: The following may produce a false positive D Dimer test: - Rheumatoid factor greater than 60 IU/ml - Plasma hemoglobin greater than 0.05 gm/dl - Bilirubin greater than 50 mg/dl - Lipids greater than 1000 mg/dl - FDP greater than 20 ug/ml 21 SDS 08/20/14 22 Because ethnic data is not always readily available, this report includes an eGFR for both -Americans and non- Americans. The National Kidney Disease Education Program (NKDEP) does not endorse the use of the MDRD equation for patients that are not between the ages of 18 and 70, are , have extremes of body size, muscle mass, or nutritional status, or are non- or non-. According to the National Kidney Foundation, irrespective of diagnosis, the stage of the disease is based on the level of kidney function: Stage Description GFR(mL/min/1.73 m(2)) 1 Kidney damage with normal or decreased GFR 90 2 Kidney damage with mild decrease in GFR 60-89 3 Moderate decrease in GFR 30-59 4 Severe decrease in GFR 15-29 5 Kidney failure <15 (or dialysis) 23 RUN DATE: 07/03/14 [facility] LAB LIVE PAGE 1 RUN TIME: [address] [place] [id number] Specimen Inquiry Name: ROXIE ZHENG : [address]: Salbador Thomas MD Acct: [id number] Unit: [id number] AGE: 59 Location: ENDO Re07/02/14 SEX: F Status: REG REF SPEC: [id number] RAMÓN: 07/02/14- SUBM DR: Salbador Thomas MD REQ: [id number] RECD: 07/02/141235 STATUS: MICHAEL ANN DR: Demetra Lancaster MD _ ORDERED: LEVEL IV/3 FINAL DIAGNOSIS 1. Colon, right, biopsy: A. Tubular adenoma. B. No high grade dysplasia or malignancy. 2. Colon, cecum, biopsy: A. Tubular adenoma. B. No high grade dysplasia or malignancy. 3. Colon, hepatic flexure, biopsy: A. Tubular adenoma. B. No high grade dysplasia or malignancy. CLINICAL HISTORY Screening colonoscopy with personal history of colon polyps; last colonoscopy 2008 POST-OPERATIVE DIAGNOSIS Screening colonoscopy into terminal ileum, prep good - 4 polyps removed, sigmoid diverticulosis. Four polyps removed GROSS DESCRIPTION 1. The specimen is received in formalin labeled Roxie Zheng, Polyp at Right Colon Cold Snare, and consists of two gibbs, irregular to polypoid soft tissue fragments measuring 0.2 x 0.2 x 0.1 cm. and 0.3 x 0.2 x 0.2 cm. Submitted entirely, one cassette. 2. The specimen is received in formalin labeled Roxie Zheng, Biopsy Cecal Polyp, and consists of a 0.6 x 0.2 x 0.2 cm. gibbs, irregular soft tissue fragment. Submitted entirely, one cassette. CONTINUED ON NEXT PAGE * ML=Testing performed at Main Lab DEPARTMENT OF PATHOLOGY, [facility] [address] [place], [place] [address] Delfino Coy M.D. Director [facility] # [id number] RUN DATE: 07/03/14 [facility] LAB LIVE PAGE 2 RUN TIME: [address] [facility] IntraStage [place], [place] [address] Specimen Inquiry Patient: ROXIE ZHENG [id number] (Continued) GROSS DESCRIPTION (Continued) GROSS DESCRIPTION (Continued) 3. The specimen is received in formalin labeled Roxie Zheng, Biopsy Hepatic Flexure Polyp and Cold Snare, and consists of a 1.0 x 0.7 x 0.2 cm. aggregate of multiple gibbs, irregular soft tissue fragments. Submitted entirely, one cassette. Signed (signature on file) Delfino Coy MD 1526 END OF REPORT * ML=Testing performed at Main Lab DEPARTMENT OF PATHOLOGY, [address] [place] [address] Delfino Coy M.D. Director [facility] # [id number] 24 Desirable <150 Borderline high 150-199 High 200-499 Very High >500 25 Desirable <200 Borderline high 200-239 High >239 26 Low <40 Desirable: 40-60 High: >60 27 Desirable <100 Near Optimal 100-129 Borderline high 130-159 High 160-189 Very High >189 28 Because ethnic data is not always readily available, this report includes an eGFR for both -Americans and non- Americans. The National Kidney Disease Education Program (NKDEP) does not endorse the use of the MDRD equation for patients that are not between the ages of 18 and 70, are , have extremes of body size, muscle mass, or nutritional status, or are non- or non-. According to the National Kidney Foundation, irrespective of diagnosis, the stage of the disease is based on the level of kidney function: Stage Description GFR(mL/min/1.73 m(2)) 1 Kidney damage with normal or decreased GFR 90 2 Kidney damage with mild decrease in GFR 60-89 3 Moderate decrease in GFR 30-59 4 Severe decrease in GFR 15-29 5 Kidney failure <15 (or dialysis) 29 Anion gap measurement may be of limited value in the presence of any alkalosis, especially in a combined acid base disorder. . 30 A metabolite of Naproxen, O-desmethylnaproxen, has been shown to interfere with the Jendrassik-Olga method for measuring total bilirubin. Samples from patients who have taken Naproxen have shown spurious elevation in total bilirubin levels. 31 Because ethnic data is not always readily available, this report includes an eGFR for both -Americans and non- Americans. The National Kidney Disease Education Program (NKDEP) does not endorse the use of the MDRD equation for patients that are not between the ages of 18 and 70, are , have extremes of body size, muscle mass, or nutritional status, or are non- or non-. According to the National Kidney Foundation, irrespective of diagnosis, the stage of the disease is based on the level of kidney function: Stage Description GFR(mL/min/1.73 m(2)) 1 Kidney damage with normal or decreased GFR 90 2 Kidney damage with mild decrease in GFR 60-89 3 Moderate decrease in GFR 30-59 4 Severe decrease in GFR 15-29 5 Kidney failure <15 (or dialysis) 32 CHOLESTEROL INTERPRETATION: Desirable: Less than 200 MG/DL Borderline-High Risk: 200-239 MG/DL High-Risk: 240 MG/DL and over 33 HDL INTERPRETATION: Undesirable: High Risk: Less than 40 MG/DL Desirable: Low Risk: Greater than 60 MG/DL 34 LDL INTERPRETATION: Low Risk Optimal Level: LDL Less than 100 MG/DL Near or Above Optimal: LDL 100-129 MG/DL Borderline High Risk: LDL 130-159 MG/DL High Risk: LDL 160-189 MG/DL Very High Risk: LDL Greater than 189 MG/DL Procedures Date Code Description Status 02/11/2019 95188 EKG Tracing & Interpretation Completed 11/26/2018 97559 ECHO Transthoracic, Real-Time 2D With Doppler And Completed Color Flow 11/26/2018 53690 ECHO Transthoracic, Real-Time 2D With Doppler And Completed Color Flow 05/16/2018 [id number] Mammogram Completed 01/19/2018 70471 Injection Single Tendon Origin/Insertion Completed 08/29/2017 99516 EKG Tracing & Interpretation Completed 08/08/2017 50739 Stress Test Completed 08/08/2017 43427 Stress Test Completed 08/03/2017 00406 ECHO Transthorasic Realtime 2D W Doppler & Color Flow Completed Hosp 07/26/2017 15311 EKG Tracing & Interpretation Completed 05/11/2017 [id number] Mammogram Completed 08/19/2016 34175 Holter Monitor Review (24 hr)dr review & interp only Completed 08/15/2016 27663 ECG Monitor/Recording W/Visual Superimposition Completed Scanning 05/10/2016 [id number] Mammogram Completed 04/14/2016 18645 Stress Test Completed 05/08/2015 [id number] Mammogram Completed 08/20/2014 52829 Trigger Finger Release Incision / Tendon Sheath Completed Incision 07/14/2014 15514 Rad Exam; Hand Comp Completed 07/14/2014 34163 Inject Tendon Sheath Or Ligament Aponeurosis Eg Completed Plantar Fascia 07/02/2014 [id number] Colonoscopy Completed 05/07/2014 [id number] Mammogram Completed 02/18/2013 [id number] Mammogram Completed 06/06/2012 [id number] Bone Mineral Density Test Completed 05/25/2012 [id number] Colonoscopy Completed 12/29/2011 [id number] Mammogram Completed 11/29/2010 [id number] Mammogram Completed 02/16/2009 03006 Holter Monitor Review (24 hr) review & interp only Completed 02/05/2009 80250 EKG Tracing & Interpretation Completed 03/20/2007 [id number] Bone Mineral Density Test Completed 02/27/2007 24384 EKG Tracing & Interpretation Completed 02/27/2007 54885 EKG Tracing & Interpretation Completed Encounters Type Date Location Provider Dx Diagnosis Office Visit 10/22/2018 [facility] Luisa Szymanski, I10 Essential (primary ) 10:00a Medicine - [facility] N.P. hypertension Office Visit 10/01/2018 [facility] Luisa Szymanski I10 Essential (primary ) 10:20a Medicine - [facility] N.P. hypertension Office Visit 05/11/2018 DoNotUse Telma Szymanski, R05 Cough 11:40a Internal N.P. Medicine-[place] R04.2 Hemoptysis S40.861A Insect bite (nonvenomous) of right upper arm, init encntr Office Visit 04/24/2018 8:40a [facility] Luisa Szymanski, Z00.00 Encntr for Medicine - [facility] N.P. general adult medical exam w/o abnormal findings Z12.31 Encntr screen mammogram for malignant neoplasm of breast I10 Essential (primary) hypertension E78.00 Pure hypercholesterolemia, unspecified I77.810 Thoracic aortic ectasia K21.9 Gastro-esophageal reflux disease without esophagitis Z23 Encounter for immunization Office Visit 02/19/2018 9:15a [facility] Mel[facility] M70.62 [facility] bursitis, left hip C.M.A. M16.12 Unilateral primary osteoarthritis, left hip M25.552 Pain in left hip Office Visit 01/19/2018 [facility] M16.12 Unilateral primary 11:00a [facility] osteoarthritis, left C.M.A. hip M70.62 Trochanteric bursitis, left hip M25.552 Pain in left hip Office Visit 01/17/2018 [facility] Luisa Szymanski M25.552 Pain in left hip 3:40p Medicine - [facility] N.P. Office Visit 10/25/2017 [facility] Luisa Szymanski, I10 Essential 10:00a Medicine - [facility] N.P. (primary) hypertension Office Visit 08/29/2017 Chandrika Narayanan I77.810 Thoracic aortic 1:30p [facility] Mehta, ectasia [facility] FACC, FASNC R07.9 Chest pain, unspecified Office Visit 07/26/2017 9:00a [facility] Luisa Szymanski, R07.89 Other chest pain Medicine - N.P. [facility] Office Visit 06/13/2017 10:00a [facility] Luisa Szymanski, J01.90 Acute sinusitis, Medicine - N.P. unspecified [facility] Office Visit 04/12/2017 10:00a [facility] Luisa Szymanski, R03.0 Elevated Medicine - N.P. blood-pressure [facility] reading, w/o diagnosis of htn Office Visit 03/29/2017 10:20a [facility] Luisa Szymanski, R03.0 Elevated Medicine - N.P. blood-pressure [facility] reading, w/o diagnosis of htn Office Visit 07/26/2016 11:20a [facility] Luisa Stephon, R00.2 Palpitations Medicine - N.P. [facility] Z82.49 Family hx of ischem heart dis and oth dis of the circ sys Office Visit 06/24/2016 1:20p [facility] Luisa Stephon, N39.0 Urinary tract Medicine - N.P. infection, site not [facility] specified Office Visit 06/10/2016 1:00p [facility] Luisa Szymanski, Z01.818 Encounter for other Medicine - N.P. preprocedural [facility] examination M20.11 Hallux valgus (acquired), right foot Z87.898 Personal history of other specified conditions Office Visit 03/21/2016 3:00p [facility] Luisa Szymanski, M79.671 Pain in right Medicine - [facility] N.P. foot R07.89 Other chest pain M20.11 Hallux valgus (acquired), right foot Office Visit 03/24/2015 10:00a [facility] Abdon Hahn, V70.0 Examination Medicine - Suite IMPORT EXPORT MANAGER General Medical R Routine AT Health Care Facility V76.19 Screening Breast Exam Malignant Neoplasms Other 719.44 Pain Joint Hand V10.82 History Personal Malignant Neoplasm Melanoma Of Skin 389.9 Hearing Loss Unspec V04.89 Need For Prophylactic Vaccination & Inoculation Other Virus 272.0 Hypercholesterolemia Pure v04.89 Need For Prophylactic Vaccination & Inoculation Other Virus Office Visit 11/19/2014 10:30a [facility] Abdon Hahn, 719.46 Pain Joint Medicine - Suite R IMPORT EXPORT MANAGER Lower Leg Office Visit 07/28/2014 2:30p [facility] Billy Fields 727.03 [facility] Kincaid M.D. Acquired 719.44 Pain Joint Hand Office Visit 07/14/2014 11:00a [facility] Billy Fields 727.03 [facility] Kincaid M.D. Acquired 719.44 Pain Joint Hand Office Visit 06/10/2014 11:20a [facility] Luisa Szymanski, 727.03 Trigger Finger Medicine - N.P. Acquired [facility] Office Visit 08/21/2013 1:00p [facility] Demetra Lancaster, 401.1 Hypertension Medicine - [place], FACP Benign [facility] 378.9 Eye Movement Disorder Unspec V04.81 Need For Prophylactic Vaccination & Inoculation/Influenza Office Visit 02/27/2013 3:00p [facility] Medicine Demetra Lancaster M.D., 724.2 Lumbago - [facility] FACP 088.81 Lyme Disease Office Visit 01/25/2013 9:00a [facility] Demetra Lancaster, 378.9 [facility] Disorder Unspec Office Visit 10/16/2012 11:00a [facility] Demetra Lancaster, 726.19 Shoulder Disorders [facility] Other Spec Office Visit 2012 1:40p [facility] Demetra Lancaster, V70.0 Examination [facility] F[facility] General Medical Routine AT Health Care Facility V76.10 Screening For Malignant Neoplasm Breast 272.0 Hypercholesterolemia Pure 346.00 Migraine Classical W/O Intractable W/O Status Migrainosus 627.9 Menopausal & Postmenopausal Disorder Unspec V04.81 Need For Prophylactic Vaccination & Inoculation/Influenza V05.3 Viral Hepatitis Vaccination & Inoculation Office Visit 04/16/2012 9:40a [facility] Rosario Villarreal, E906.5 Bite By [facility] Animal 682.3 Cellulitis & Abscess Upper Arm & Forearm Office Visit 01/16/2012 10:20a [facility] Demetra Lancaster, 346.00 Migraine Classical Medicine - [place]os[place], FACP W/O Intractable Ccmob W/O Status Migrainosus Office Visit 12/26/2011 12:00p [facility] Demetra Lancaster, 785.6 Lymph Nodes Medicine - [place], FACP Enlargement Ccmob Office Visit 08/26/2010 11:00a DO Not Use Luisa Stephon, 461.9 Sinusitis Acute [employer] [facility] Unspec Office Visit 04/02/2010 10:00a DO Not Use Demetradot Lancaster, 384.20 Tympanic Membrane Emilia Tran, FACP Perforation Unspec Office Visit 02/22/2010 1:30p DO Not Use Luisa Viran, 466.0 Bronchitis Acute [employer] [facility] Office Visit 01/14/2010 10:15a DO Not Use Luisa Stephon, 599.0 UTI Urinary Tract [employer] [facility] 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 724.1 Pain Thoracic Spine 728.85 Spasm Muscle Office Visit 05/21/2009 DO Not Use Demetra Anisha, 272.4 Hyperlipidemia Other 12:00p [employer] M.D., FACP Unspec V04.81 Need For Prophylactic Vaccination & Inoculation/Influenza Office Visit 02/19/2009 DO Not Use Demetra Anisha, 272.4 Hyperlipidemia Other 12:00p [employer] M.D., FACP Unspec Office Visit 02/05/2009 DO Not Use Demetra Anisha, 785.1 Palpitations 12:00p [employer] M.Matthew., FACP 272.0 Hypercholesterolemia Pure Office Visit 08/27/2008 10:30a DO Not Use Luisa Varn, 724.2 Lumbago [employer] [facility] Office Visit 07/14/2008 4:15p DO Not Use Luisa Varn, 724.2 Lumbago [employer] [facility] 789.09 Pain Abdominal Other Spec Site Office Visit 07/11/2008 DO Not Use Luisa Varn, 461.9 Sinusitis Acute 9:30a [employer] [facility] Unspec Office Visit 02/15/2008 DO Not Use Demetra Anihsa, 681.02 Onychia & 10:45a [employer] Loco.Augustine, FACP Paronychia Finger V06.1 Yulglzczio-Lfwibza-Nbfdxkfn Combined (DTaP) Office 01/04/2008 DO Not Use Luisa 461.9 Sinusitis Acute Unspec Visit 9:30a [employer] Varn, N.P. Office 10/03/2007 DO Not Use Luisa 599.0 UTI Urinary Tract Visit 2:00p [employer] Varn, N.P. Infection Site Not Spec Office 06/18/2007 DO Not Use Demetra Anisha, 272.0 Hypercholesterolemia Visit 9:45a [employer] Loco.Matthew., FACP Pure 796.2 Blood Pressure Reading Elevated W/O Hypertension V04.81 Need For Prophylactic Vaccination & Inoculation/Influenza Office Visit 04/05/2007 DO Not Use Demetra Anisha, 272.4 Hyperlipidemia Other 9:15a [employer] M.D., [facility] Unspec V05.3 Viral Hepatitis Vaccination & Inoculation Office Visit 02/27/2007 10:15a DO Not Use Demetra Anisha, V70.0 Examination Emilia Tran, [facility] General Medical Routine AT Health Care Facility 401.1 Hypertension Benign V05.3 Viral Hepatitis Vaccination & Inoculation Office Visit 06/19/2006 11:45a DO Not Use Demetra Anisha, 461.9 Sinusitis Acute Emilia Tran, [facility] Unspec Plan of Treatment Future Appointment(s):08/16/2019 9:00 am - Derrick Mehta M.D., FACC, FASWV at [facility]08/13/2019 9:00 am - Traveling ECHO 1 at [facility]04/29/2019 9:20 am - Luisa Szymanski N.P. at [facility] Internal Medicine - Ccmob02/11/2019 - Derrick Mehta M.D., [facility], [id number] Thoracic aortic ectasiaNew Orders:Echocardiogram, Ordered: 02/11/19Comments:As discussed, your aorta is a little larger than prior so please avoid lifting more than 30 lbs and I will recheck your aorta on echo in 6 months. Please continue to follow your blood pressure with your PCP.Follow up:after echo in 6 months
[2019-02-13 11:44] VITALS: BP 163/88
--- NOTE | 2019-02-13 11:48 | UC ---
Knee Pain HPI - HPI Summary HPI Summary: Patient presents to urgent care for evaluation of her right knee. Patient states for approximately 2 weeks she's been having some discomfort in her right knee gets worse in the morning and worse when she tries to stretch it. Patient states she has discomfort in the lateral aspect of her popliteal fossa. Patient has appointment with her PCP tomorrow to evaluate this. Patient states she is concerned she could have Lyme disease as she lives in a tick heavy environment. Patient without a recent bite. Patient has a rash. No fevers or chills. No rash. No nausea vomiting. No other joint or muscle pain. This morning patient was standing on a sofa working on a smoke detector. Patient states that she was stepping off her knee buckled and she fell. Patient states she had increased pain in the lateral aspect of her popliteal. Patient states she felt a pop. No paresthesias. No leg weakness. Patient states she now has pain with flexion and ambulation. No analgesia taken. Ice applied. Patient denies Pain. No history of blood clots. No family history of blood clots. Patient's medications reviewed this visit. - History of Current Complaint Chief Complaint: UCLowerExtremity Stated Complaint: RT KNEE INJURY Time Seen by Provider: 02/13/19 11:37 Hx Obtained From: Patient Pain Intensity: 9 - Allergies/Home Medications Allergies/Adverse Reactions: Allergies Allergy/AdvReac Type Severity Reaction Status Date / Time ciprofloxacin Allergy Hives Verified 02/13/19 11:57 codeine Allergy Rash Verified 02/13/19 11:58 Home Medications: Home Medications NK [No Home Medications Reported] 02/13/19 [History Confirmed 02/13/19] PMH/Surg Hx/FS Hx/Imm Hx Previously Healthy: Yes - Surgical History Surgical History: Yes Surgery Procedure, Year, and Place: 2 csections, GB, hiatal hernia repair, carpal tunnel bilateral, LASIK RIGHT EYE 2000 - Family History Known Family History: Positive: Hypertension, Non-Contributory - Social History Lives: With Family Alcohol Use: None Substance Use Type: None Smoking Status (MU): Never Smoked Tobacco Have You Smoked in the Last Year: No Review of Systems All Other Systems Reviewed And Are Negative: Yes Constitutional: Positive: Negative Skin: Positive: Negative Eyes: Positive: Negative ENT: Positive: Negative Respiratory: Positive: Negative Cardiovascular: Positive: Negative Musculoskeletal: Positive: Other: - right knee, popliteal fossa Is Patient Immunocompromised?: No Physical Exam - Summary Physical Exam Summary: Vital Signs Reviewed: Yes A+Ox3, no distress Eyes: Conjunctiva Clear ENT: Hearing grossly normal neck: supple Respiratory: Positive: No respiratory distress, No accessory muscle use , Cardiovascular: skin color reflect adequate perfusion Musculoskeletal Exam: RLE: + SLE + flex/ext ankle Pain with flexion > 100 neg anterior/posterior drawer, no pain lateral joint testing + TTP lateral aspect popliteal fossa with direct palpation minimal discomfort proximal calf Neurological: Positive: Alert, ambulatory without difficulty + gross sensation distal + great toe extension Psychological: Positive: Normal Response To Family Skin: Positive: no rash, no ecchymosis, no warmth, no edema Triage Information Reviewed: Yes Vital Signs: Initial Vital Signs Temp 98.8 F 02/13/19 11:37 Pulse 68 02/13/19 11:37 Resp 18 02/13/19 11:37 BP 163/88 02/13/19 11:37 Pulse Ox 99 02/13/19 11:37 Diagnostics - Radiology No standard instances Radiology Interpretation Completed By: Radiologist - Patient Name: ROXIE FOSS Medical Record#: [id number] Ordering Physician: Tammy Greene MD Acct.#: [id number] : 1955 Age: 63 Sex: F Location: [facility] Exam Date: 02/13/19 1156 ADM Status: REG ER Order Information: VL LOWER EXT VEINS RIGHT Accession Number: [id number] CPT: 58957 INDICATION: Posterior popliteal pain proximal calf. COMPARISON: There are no relevant prior studies available for comparison. TECHNIQUE: Multiple real-time, color flow and Doppler tracings of the right lower extremity were obtained. FINDINGS: The common femoral, femoral , profunda femoral and popliteal veins all demonstrate normal compressibility, augmentation with compression and phasic response with respiration. The posterior tibial and peroneal veins demonstrate normal compressibility and augmentation with compression. No popliteal cyst is present. IMPRESSION: 1. NO EVIDENCE FOR DEEP VENOUS THROMBOSIS. 2. NO POPLITEAL CYST IS PRESENT. <Electronically signed by Morgan Drake MD in OV> 02/13/19 1238 Dictated By: Mogran Drake MD Dictated Date/Time: 02/13/19 1238 Transcribed Date/Time: 02/13/19 1236 Copy to: CC:Tammy Greene MD; Luisa Szymanski NP Imaging - [facility] Imaging - [facility] Urgent [facility] [place] [address] [address] ph [phone]) ph ([phone]) ph ([phone]) This report is only to be considered final once signed by the Provider(s) as displayed in the "< Electronically Signed by >" field (s). Absence of a signature indicates the report is in a draft status and still needs to be finalized. In the event this document was created by someone other than the signing Provider, the individual initiating the document will be listed in the "Entered by:" or "Dictated by:" carver. 1 of 1 Patient Name: ROXIE FOSS Medical Record#: [id number] Ordering Physician: Tammy Greene MD Acct.#: [id number] : 1955 Age: 63 Sex: F Location: [facility] Exam Date: 02/13/19 1157 ADM Status: REG ER Order Information : KNEE RIGHT 4+ VWS Accession Number: [id number] CPT: 17115 INDICATION : Right knee injury. TECHNIQUE: 4 views of the right knee were obtained. FINDINGS: The bones are normal alignment. There is a small joint effusion present. No fracture is seen. Joint spaces appear maintained. IMPRESSION: SMALL JOINT EFFUSION, NO FRACTURE IS SEEN. <Electronically signed by Morgan Drake MD in OV> 02/13/19 1259 Dictated By: Morgan Drake MD Dictated Date/Time: 02/13/19 1259 Transcribed Date/Time: 02/13/19 1250 Copy to: CC:Tammy Greene MD; Luisa Szymanski NP Imaging - [facility] Imaging - [facility] Imaging - [facility] [address] [address] [place] [address] [place] [address] ph ([phone]) ph ([phone]) ph ([phone]) This report is only to be considered final once signed by the Provider(s) as displayed in the "<Electronically Signed by >" field (s). Absence of a signature indicates the report is in a draft status and still needs to be finalized. In the event this document was created by someone other than the signing Provider, the individual initiating the document will be listed in the "Entered by:" or "Dictated by:" carver. 1 of Re-Evaluation - Re-Evaluation First Eval Comment: reviewed imaging. pt has appt with pcp tomorrow to disuss lyme- low suspicion - will draw here today. Pt has previously seen Dr. Melton for hip cortisone injection - recommend f.u with here. pt comfortable and in agreement with plan Knee Pain Course/Dx - Course Course Of Treatment: Patient presents to urgent care for evaluation of her right knee. Patient with to 3 weeks of pain in the popliteal fossa. Patient had concern that this could be line was started to see her private primary tomorrow. She without any other symptoms. Today patient was sitting on a couch when her right knee buckled. Patient develop increasing pain in the popliteal lateral aspect. Patient states she heard a pop. Patient denies any paresthesias. Patient states she has pain with flexion and walking. Vital signs are stable. Patient with discomfort the lateral posterior aspect of the popliteal fossa. Patient distal CSM intact. Patient unable to flex past 90 and a pain. We'll check plain film imaging studies as well as ultrasound for DVT/ bakers cyst PT declined analgesia stating pain well controlled when sitting Elevated BP = recommend pcp recheck tomorrow - Differential Dx/Diagnosis Provider Diagnosis: Right knee pain Discharge - Sign-Out/Discharge Documenting (check all that apply): Patient Departure All imaging exams completed and their final reports reviewed: Yes - Discharge Plan Condition: Stable Disposition: HOME Patient Education Materials: Knee Sprain (ED), Crutch Instructions (ED) Referrals: Luisa Szymanski NP [Primary Care Provider] - Gabi Melton MD [Medical Doctor] - Additional Instructions: -Okay to alternate ibuprofen (advil, Motrin) and tylenol every 3 hours for pain. Take with food. Do NOT take for more than 4-5 days - Use crutches until you can walk without pain or a limp - wear min wrap for support -Apply ice (20 min at a time) every 4 hours while awake today and tomorrow - as discussed your lyme blood tests may take several days to come back - you will receive a call from a care steam conditioner filling if you have positive results. your primary provider will also be able to see these results -keep your follow-up appointment with your doctor as scheduled tomorrow. Call your doctor or return with questions or concerns - Billing Disposition and Condition Condition: STABLE Disposition: Home
== END 2019-02-13 13:38 | disposition home or self-care (01) ==
LOC: UCEAST 11:25
DX: M25.561 Pain in right knee (principal); Z88.5 Allergy status to narcotic agent
CPT/HCPCS: 86617; 99212; G0463